=== PATIENT | male | born 1990 | race Caucasian/White ===

== ENCOUNTER → 2023-09-26 | Outpatient (CLI) | payer OTHER ==
--- NOTE | 2023-09-26 16:34 | US ---
EXAMINATION TYPE: US scrotum with doppler. Grayscale and color Doppler Duplex imaging performed of megan hollins scrotum. DATE OF EXAM: 09/26/2023 COMPARISON: NONE CLINICAL INDICATION: Male, 33 years old with history of N50.89 OTHER SPECIFIED DISORDERS; Dull ache/t ightness intermittently within right testicle. EXAM MEASUREMENTS: TESTICLES: Right Testicle: 5.4 x 3.6 x 3.0 cm Left Testicle: 5.0 x 3.0 x 2.9 cm. Hyperechoic areas seen, appear to be 2 adjacent calcified are as: 0.2 x 0.2 x 0.2 cm measured together. EPIDIDYMIS HEAD: Right Epididymis: 0.7 x 0.9 x 1.8 cm Left Epididymis: 1.0 x 1.5 x 1.5 cm Doppler performed to assess for testicular vascularity; good bilateral color flow and waveforms are s een. Presence of hydroceles: Yes, right = 2.1 x 0.8 x 0.5 cm. Left = 3.4 x 0.9 x 0.9 cm. Presence of varicoceles: No IMPRESSION: 1. Symmetrical blood flow to bilateral testicles. 2. Small bilateral hydroceles
== END | disposition home or self-care (01) ==
LOC: RADUSWWP 13:51
PROVIDERS: ATTEND Urology
DX: N43.3 Hydrocele, unspecified (principal); N50.89 Other specified disorders of the male genital organs
CPT/HCPCS: 76870; 93975

== ENCOUNTER → 2024-09-20 | Outpatient (CLI) | payer OTHER | END | disposition home or self-care (01) | LOC: LABWHC1 10:00 | PROVIDERS: ATTEND Urology | DX: E29.1 Testicular hypofunction (principal) | CPT/HCPCS: 36415; 84403 ==